=== PATIENT | male | born 1975 | race Caucasian/White ===

== ENCOUNTER 2019-02-01 06:43 | Emergency (ER) | payer OTHER, BC ==
[~2019-02-01] VITALS: Ht 188 cm; Wt 88.5 kg
[2019-02-01] MEDS ORDERED: PRAVASTATIN SOD20 MG PO (06:56)
== END 2019-02-01 08:58 | disposition home or self-care (01) ==
LOC: ED 06:43
DX: S61.531A Puncture wound without foreign body of right wrist, initial encounter (principal); Z79.899 Other long term (current) drug therapy; W26.8XXA Contact with other sharp object(s), not elsewhere classified, initial encounter
CPT/HCPCS: 73110; 90471; 90715; 99283-25